=== PATIENT | female | born 1995 | race Hispanic/Latino ===

== ENCOUNTER 2018-01-31 06:52 | Day surgery (SDC) | payer MEDICAID ==
[2018-01-29 15:51] LABS: BASOPHILS % (AUTO) 0.8 % (0.0-5.0); EOSINOPHILS % (AUTO) 1.6 % (0.0-8.0); HEMATOCRIT 37.6 % (36-48); LYMPHOCYTES % (AUTO) 16.1 % (21.0-51.0); MEAN CORPUSCULAR HEMOGLOBIN 29.3 pg (27.0-33.0); MEAN CORPUSCULAR HGB CONC 33.6 g/dL (32.0-36.0); MEAN CORPUSCULAR VOLUME 87.2 fL (79-99); NEUTROPHILS % (AUTO) 74.5 % (40.0-77.0); PLATELET COUNT (AUTO) 248 K/uL (130-400); RED BLOOD CELL COUNT(AUTO) 4.32 MIL/uL (4.00-5.50); RED CELL DISTRIBUTION WIDTH 15.3 % (11.0-15.5); WHITE BLOOD COUNT (AUTO) 8.2 K/uL (4.8-10.8)
[2018-01-29 16:06] VITALS: BP 97/60
[~2018-01-31] VITALS: Ht 157.5 cm; Wt 54.2 kg
[~2018-01-31 06:52] MED LIST: PREN1TAB80 PO
[2018-01-31] MEDS ORDERED: LACTATED RINGERS 1000ML 1,000 ML IV ONE (07:31)
[2018-01-31 07:45] VITALS: BP 104/49
[2018-01-31] MEDS ORDERED: FENTANYL CITRATE PF 50 MCG/1 ML 2ML VIAL ONE (08:09)
[2018-01-31] MEDS ORDERED: ONDANSETRON HCL 4 MG/2 ML VIAL ONE (08:25)
[2018-01-31] MEDS ORDERED: DEXAMETHASONE SOD PHOSPHATE 10MG/ML 1ML VIAL ONE (08:25)
[2018-01-31] MEDS ORDERED: MIDAZOLAM HCL 1 MG/ML 2ML VIAL ONE (08:26)
[2018-01-31] MEDS ORDERED: LIDOCAINE HCL-MPF 2% 10ML AMP IJ ONE (08:26)
[2018-01-31] MEDS ORDERED: LIDOCAINE HCL MPF 1% 5ML VIAL ONE (08:26)
[2018-01-31] MEDS ORDERED: OXYTOCIN 10 USP UNITS/ML ONE (08:26)
[2018-01-31] MEDS ORDERED: ROCURONIUM BROMIDE 10MG/1ML 5ML VL ONE (08:26)
[2018-01-31 09:32] VITALS: BP 111/74
[2018-01-31 10:00] VITALS: BP 111/76
[2018-01-31 10:30] VITALS: BP 104/64
[2018-01-31 11:00] VITALS: BP 102/69
[2018-01-31 11:20] VITALS: BP 116/70
== END 2018-01-31 11:25 | disposition home or self-care (01) ==
LOC: DAH 06:52
PROVIDERS: ATTEND Specialist
DX: O02.1 Missed abortion (principal); Z88.0 Allergy status to penicillin; Z88.8 Allergy status to other drugs, medicaments and biological substances
CPT/HCPCS: 36415; 59820; 85025; 88305; A4606; J1100; J2250; J2405; J2590; J3010; J3490 ×3; J7120 ×2

== ENCOUNTER 2018-02-12 12:16 | Emergency (ER) | payer MEDICAID ==
[2018-02-12] MEDS ORDERED: DICYCLOMINE HCL 10 MG/ML 2ML AMP IM ONE (13:08)
[2018-02-12] MEDS ORDERED: IBUPROFEN 400 MG TABLET ONE (13:09)
== END 2018-02-12 14:41 | disposition home or self-care (01) ==
LOC: EDH 12:16
DX: K59.00 Constipation, unspecified (principal)
CPT/HCPCS: 96372; 99283; J0500

== ENCOUNTER 2020-04-29 21:35 | Observation (INO) | payer MEDICAID ==
[~2020-04-29] VITALS: Ht 157.5 cm; Wt 63.0 kg
[2020-04-29 22:04] LABS: APPEARANCE,URINE Clear (CLEAR); BILIRUBIN,URINE Negative (NEGATIVE); COLOR,URINE Yellow (YELLOW); GLUCOSE, URINE (UA) Negative (NEGATIVE); KETONES,URINE Negative (NEGATIVE); LEUKOCYTE ESTERASE ,URINE Moderate (NEGATIVE); NITRATE,URINE Negative (NEGATIVE); OCCULT BLOOD,URINE Negative (NEGATIVE); PH,URINE 7.5 (5.0-8.0); PROTEIN,URINE Negative (NEGATIVE); UROBILINOGEN,URINE 0.2 mg/dL (0.2-1.0)
[2020-04-29 22:13] LABS: BACTERIA,URINE Few /HPF (None Seen); MUCUS,URINE Few LPF (None Seen); RBC,URINE 0-1 /HPF (0-1); SQUAMOUS EPITHELIAL CELL,UR Few /HPF (0-2); TRICHOMONAS,URINE Few /LPF (None Seen)
[2020-04-29 22:40] VITALS: BP 106/65
[2020-04-29] MEDS ORDERED: METRONIDAZOLE 500 MG TABLET PO SCH (22:45)
== END 2020-04-29 23:40 | disposition home or self-care (01) ==
LOC: EDH 21:35 → LDH 22:04
DX: O26.852 Spotting complicating pregnancy, second trimester (principal); Z3A.22 22 weeks gestation of pregnancy
CPT/HCPCS: 81001; 87088; 99284; G0378 ×2

== ENCOUNTER 2020-08-18 18:40 | Observation (INO) | payer MEDICAID ==
[~2020-08-18] VITALS: Ht 160 cm; Wt 67.1 kg
[2020-08-18 19:52] VITALS: BP 100/58
[2020-08-18] MEDS ORDERED: PREN-196 PO (19:52)
[2020-08-18 20:02] LABS: APPEARANCE,URINE Clear (CLEAR); BILIRUBIN,URINE Negative (NEGATIVE); COLOR,URINE Yellow (YELLOW); GLUCOSE, URINE (UA) Negative (NEGATIVE); KETONES,URINE Negative (NEGATIVE); LEUKOCYTE ESTERASE ,URINE Moderate (NEGATIVE); NITRATE,URINE Negative (NEGATIVE); OCCULT BLOOD,URINE Negative (NEGATIVE); PROTEIN,URINE Negative (NEGATIVE)
[2020-08-18 20:13] LABS: BACTERIA,URINE Few /HPF (None Seen); RBC,URINE 0-1 /HPF (0-1); SQUAMOUS EPITHELIAL CELL,UR Few /HPF (0-2)
[2020-08-18 20:14] LABS: MUCUS,URINE Rare LPF (None Seen)
[2020-08-18 21:21] LABS: HEMATOCRIT 32.4 % (36-48); MEAN CORPUSCULAR HEMOGLOBIN 26.6 pg (27.0-33.0); MEAN CORPUSCULAR HGB CONC 31.5 g/dL (32.0-36.0); MEAN CORPUSCULAR VOLUME 84.6 fL (79-99); RED BLOOD CELL COUNT(AUTO) 3.83 MIL/uL (4.00-5.50); RED CELL DISTRIBUTION WIDTH 14.1 % (11.0-15.5)
[2020-08-18] MEDS: LACTATED RINGERS 1000ML 1,000 ML IV SCH (21:41)
[2020-08-19] MEDS: LACTATED RINGERS 1000ML 1,000 ML IV SCH (06:54)
[2020-08-19 13:34] LABS: RAPID PLASMA REAGIN NONREACTIVE (NONREACTIVE)
[2020-08-20 07:15] LABS: HEPATITIS Bs ANTIGEN SCREEN P Negative (Negative)
== END 2020-08-19 10:40 | disposition home or self-care (01) ==
LOC: EDH 18:40 → LDH 18:47 → UNDOADMOB 18:47 → LDH 19:00
PROVIDERS: ADMIT Specialist; ATTEND Specialist
DX: O62.9 Abnormality of forces of labor, unspecified (principal); Z3A.38 38 weeks gestation of pregnancy
CPT/HCPCS: 36415; 59025; 81001; 85027; 86592; 86701; 86850; 86900; 86901; 87088; 87340; 87390; 96360; 96361 ×3; 99284; G0378 ×16; J7120 ×2

== ENCOUNTER 2020-08-30 13:13 | Inpatient (IN) | payer MEDICAID ==
[~2020-08-30] VITALS: Ht 157.5 cm; Wt 66.7 kg
[~2020-08-30 13:13] MED LIST changes: +PREN-196 PO; -PREN1TAB80 PO
[2020-08-30] MEDS: LACTATED RINGERS 1000ML 1,000 ML IV PRN ×2 (14:00→21:23)
[2020-08-30] MEDS ORDERED: EPHEDRINE SULFATE 50 MG/ML AMPULE IVP PRN (14:15)
[2020-08-30] MEDS ORDERED: MEPERIDINE-PF 50 MG/ML SYG IVP PRN (14:15)
[2020-08-30] MEDS ORDERED: PROMETHAZINE HCL 25 MG/ML 1ML AMPULE IM PRN (14:15)
[2020-08-30] MEDS ORDERED: NALOXONE HCL 0.4 MG/1 ML ML IV PRN (14:15)
[2020-08-30] MEDS ORDERED: LACTATED RINGERS 500 ML 500 ML IV PRN (14:15)
[2020-08-30 14:21] LABS: APPEARANCE,URINE Clear (CLEAR); BILIRUBIN,URINE Negative (NEGATIVE); COLOR,URINE Yellow (YELLOW); GLUCOSE, URINE (UA) Negative (NEGATIVE); KETONES,URINE Negative (NEGATIVE); LEUKOCYTE ESTERASE ,URINE Small (NEGATIVE); NITRATE,URINE Negative (NEGATIVE); OCCULT BLOOD,URINE Negative (NEGATIVE); PH,URINE 6.5 (5.0-8.0); PROTEIN,URINE Negative (NEGATIVE)
[2020-08-30 14:28] LABS: HEMATOCRIT 33.4 % (36-48); MEAN CORPUSCULAR HEMOGLOBIN 26.2 pg (27.0-33.0); MEAN CORPUSCULAR HGB CONC 31.7 g/dL (32.0-36.0); MEAN CORPUSCULAR VOLUME 82.7 fL (79-99); RED BLOOD CELL COUNT(AUTO) 4.04 MIL/uL (4.00-5.50); RED CELL DISTRIBUTION WIDTH 14.5 % (11.0-15.5)
[2020-08-30] MEDS ORDERED: PHARMACY COMMUNICATION MISC SCH (14:30)
[2020-08-30 14:32] LABS: BACTERIA,URINE Few /HPF (None Seen); RBC,URINE 0-1 /HPF (0-1); SQUAMOUS EPITHELIAL CELL,UR Few /HPF (0-2)
[2020-08-30] MEDS ORDERED: ACETAMINOPHEN 325 MG TAB PO PRN (21:15)
[2020-08-30] MEDS ORDERED: ACETAMINOPHEN 325 MG TAB ONE (21:16)
[2020-08-31] MEDS ORDERED: OXYTOCIN-LR 20 UNITS/1000 ML 1,000 ML IV ONE (07:51)
[2020-08-31] MEDS ORDERED: OXYTOCIN-LR 20 UNITS/1000 ML 1,000 ML IV SCH ×2 (08:00→16:45)
[2020-08-31] MEDS: LACTATED RINGERS 1000ML 1,000 ML IV PRN ×3 (08:50→15:30)
[2020-08-31 15:12] LABS: HEPATITIS Bs ANTIGEN SCREEN P Negative (Negative)
[2020-08-31] MEDS ORDERED: IBUPROFEN 600 MG TABLET ONE (16:37)
[2020-08-31] MEDS: IBUPROFEN 600 MG TABLET PO PRN (16:40)
[2020-08-31] MEDS ORDERED: DIPH,PERTUSS(ACELL),TET VAC/PF 0.5 ML VIAL IM PRN (16:45)
[2020-08-31] MEDS ORDERED: ACETAMINOPHEN 325 MG TAB PO PRN (16:45)
[2020-08-31] MEDS ORDERED: MEASLES/MUMPS/RUBELLA VACCINE, LIVE 0.5 ML/VIAL SQ PRN (16:45)
[2020-08-31] MEDS ORDERED: WITCH HAZEL 1 PAD TP PRN (16:45)
[2020-08-31] MEDS ORDERED: BENZOCAINE/LANOLIN/ALOE VERA 60 ML AEROSOL TP PRN (16:45)
[2020-08-31] MEDS ORDERED: LANOLIN 30GM OINTMENT TP PRN (16:45)
[2020-08-31] MEDS ORDERED: ACETAMINOPHEN-CODEINE 300/30MG TAB PO PRN (16:45)
[2020-08-31] MEDS ORDERED: FENTANYL CITRATE PF 50 MCG/1 ML 2ML VIAL ONE (17:05)
[2020-08-31 18:20] VITALS: BP 119/62
[2020-08-31 19:35] VITALS: BP 102/53
--- NOTE | 2020-08-31 20:10 | NUR ---
PT C/O THAT LEFT THIGH STILL NUMB, NOT ABLE TO LIFT THIGH, CAN MOVE FOOT, FEELS LEG, WILL CONTINUE TO OBSERVE, INSTRUCTED TO CALL FOR ANY NEEDS Addendum: 09/01/20 at 0212 by KEENA SOTO LVN Amended: Links added.
[2020-08-31] MEDS: DOCUSATE SODIUM 100 MG CAP PO SCH (22:18)
[2020-08-31 23:35] VITALS: BP 112/75
--- NOTE | 2020-09-01 | NUR ---
ACTIVITY PATIENT VERBALIZED STILL FEELS RIGHT THIGH NUMB, IS HAVING MORE SENSATION, TINGLING TO THIGH Addendum: 09/01/20 at 0217 by KEENA SOTO LVN Amended: Links added.
[2020-09-01] MEDS: LACTATED RINGERS 1000ML 1,000 ML IV PRN (00:58)
[2020-09-01 03:51] VITALS: BP 102/73
[2020-09-01] MEDS: IBUPROFEN 600 MG TABLET PO PRN ×2 (04:17→12:08)
--- NOTE | 2020-09-01 04:30 | NUR ---
ACTIVITY/STATUS PATIENT MOVING LEFT LEG MORE, MORE SENSATION TO LEFT THIGH Addendum: 09/01/20 at 0652 by KEENA SOTO LVN Amended: Links added.
[2020-09-01 07:13] VITALS: BP 118/71
--- NOTE | 2020-09-01 07:55 | NUR ---
DR. HURT ROUNDING ON PATIENT. PATIENT CLEARED TO BE DISCHARGED.
[2020-09-01] MEDS: DOCUSATE SODIUM 100 MG CAP PO SCH (09:13)
[2020-09-01 11:15] VITALS: BP 104/69
[2020-09-01 16:24] VITALS: BP 107/68
--- NOTE | 2020-09-01 18:40 | NUR ---
PATIENT LEFT UNIT VIA WHEELCHAIR WITH BABY IN ARMS. PERSONAL VEHICLE USED FOR TRANSPORTATION. BABY SECURE IN CARSEAT. NO COMPLAINTS OR CONCERNS ADDRESSED ON DISCHARGE.
== END 2020-09-01 18:40 | disposition home or self-care (01) | DRG 560 ==
LOC: EDH 13:13 → LDH 13:29 → OBSVTOIN 13:29 → WSH 08-31 18:18
PROVIDERS: ADMIT Specialist; ATTEND Specialist
PROC: 10E0XZZ Delivery of Products of Conception, External Approach (ICD-10-PCS; principal; 2020-08-31)
PROC: 0KQM0ZZ Repair Perineum Muscle, Open Approach (ICD-10-PCS; 2020-08-31)
PROC: 3E0R3BZ Introduction of Anesthetic Agent into Spinal Canal, Percutaneous Approach (ICD-10-PCS; 2020-08-31)
PROC: 00HU33Z Insertion of Infusion Device into Spinal Canal, Percutaneous Approach (ICD-10-PCS; 2020-08-31)
PROC: 3E0234Z Introduction of Serum, Toxoid and Vaccine into Muscle, Percutaneous Approach (ICD-10-PCS; 2020-08-31)
PROC: 3E0134Z Introduction of Serum, Toxoid and Vaccine into Subcutaneous Tissue, Percutaneous Approach (ICD-10-PCS; 2020-08-31)
DX: O77.0 Labor and delivery complicated by meconium in amniotic fluid (principal); O70.1 Second degree perineal laceration during delivery; Z37.0 Single live birth; Z23 Encounter for immunization; Z3A.40 40 weeks gestation of pregnancy
CPT/HCPCS: 36415; 81001; 85027; 86592; 86850; 86900; 86901; 87340; A4314; G0378; J2590; J3010; J7120